=== PATIENT | female | born 1955 | race Caucasian/White ===

== ENCOUNTER → 2022-12-21 | Outpatient (CLI) | payer MEDICARE, SELFPAY ==
--- NOTE | 2022-12-20 16:30 | LES_PTH ---
PATIENT: BREEZY LIN LOC: [facility] U#:[id number] AGE/SX: 67/F ROOM: RE12/21/[address]: Dr. Fei Asher MD : [id number] BED: DIS: 12/21/2022 SPEC #: [id number] RECD: 12/21/22 10:00 STATUS: RUSTAM KATHRIN #: [id number] MELCHOR: 12/20/22 16:[address]: Fei Asher DEPT: SURGICAL PATHOLOGY RECD BY: Gillian Snow Tissues: Skin of eyelid, NOS Procedures: Surgery Specimen Level IV HEADER OPERATION: Excisional biopsy of right upper lid lesion PRE-OP DIAGNOSIS: Increased size of right upper lid lesion TISSUE SUBMITTED: Right upper lid lesion MICROSCOPIC DIAGNOSIS Right upper eyelid lesion, biopsy: Actinic keratosis with features of seborrheic keratosis, inflamed. Fungal organisms consistent with tinea. AM:rowena 12/22/2022 MICROSCOPIC DESCRIPTION Slides are reviewed. GROSS DESCRIPTION Received in fixative is one container labeled with the patient's name and designated right upper eyelid. The specimen consists of a piece of carrillo-white skin measuring 1.0 x 0.5 cm and up to 0.3 cm in thickness. The specimen is inked, serially sectioned and submitted entirely in one cassette. / SJ:rg 12/21/2022 TC:5 CPT: 16598
== END | disposition home or self-care (01) ==
PROVIDERS: Referring Provider Ophthalmology; Visit Provider Ophthalmology
DX: H02.9 Unspecified disorder of eyelid (principal)
CPT/HCPCS: 88305